=== PATIENT | male | born 1990 | race Caucasian/White ===

== ENCOUNTER 2022-01-07 16:03 | Emergency (ER) | payer BC, SELFPAY ==
[2022-01-07 16:11] VITALS: BP 161/97; PULSE 83; RESP 18; TEMP 36.7; O2SAT 100
--- NOTE | 2022-01-07 16:12 | ED.GENADULT ---
HPI - General Adult General Chief complaint: Wound/Laceration Stated complaint: Ct Thumb Lt Hand Time Seen by Provider: 01/07/22 16:12 Source: patient Mode of arrival: ambulatory Limitations: no limitations Related Data Home Medications Medication Instructions Recorded Confirmed No Home Medications 01/07/22 01/07/22 Allergies Allergy/AdvReac Type Severity Reaction Status Date / Time No Known Allergies Allergy Verified 01/07/22 16:08 Review of Systems Review of Systems: CONSTITUTIONAL: Denies fever, chills, or sweats. EYES: Denies visual changes, redness, or discharge. ENT: Denies rhinorrhea, congestion, sore throat, or otalgia. CARDIOVASCULAR: Denies chest pain, palpitations, or edema. RESPIRATORY: Denies cough or dyspnea. GASTROINTESTINAL: Denies abdominal pain, nausea, vomiting, or diarrhea. GENITOURINARY: Denies dysuria or hematuria. SKIN: Denies rash or itching. MUSCULOSKELETAL: Denies back pain, joint pain, or myalgia. NEUROLOGIC: Denies headache, numbness, or weakness. PSYCHIATRIC: Denies anxiety or depression. PMFSH Comments At the time of my signature I agree with nursing past medical history, surgical, social, and family history. There is no relevant family history pertinent to the presenting complaint. Exam Narrative: GENERAL: Well-appearing, well-nourished, and in no acute distress. HEAD: Normocephalic, atraumatic. EYES: PERRLA and EOMI. ENT: Nares clear, no rhinorrhea or epistaxis. Mucous membranes moist. NECK: Supple. No lymphadenopathy CHEST: Clear to auscultation. No respiratory distress. HEART: Regular rate and rhythm. No murmur heard. Normal peripheral pulses. ABDOMEN: Soft, nontender, nondistended, normal active bowel sounds. EXTREMITIES: Normal range of motion. No edema. SKIN: Warm, dry, no rash. NEURO: No focal deficits. Alert and oriented x3. Course Course Level of Care: Express Care Visit Vital Signs Vital signs: Vital Signs Temperature 36.7 C 01/07/22 16:11 Pulse Rate 83 01/07/22 16:11 Respiratory Rate 18 01/07/22 16:11 Blood Pressure 161/97 H 01/07/22 16:11 Pulse Oximetry 100 01/07/22 16:11 Oxygen Delivery Room Air 01/07/22 16:11 Temperature 36.7 C 01/07/22 16:11 Pulse Rate 83 01/07/22 16:11 Respiratory Rate 18 01/07/22 16:11 Blood Pressure 161/97 H 01/07/22 16:11 Pulse Oximetry 100 01/07/22 16:11 Oxygen Delivery Room Air 01/07/22 16:11 Vital signs reviewed Medical Decision Making Differential Diagnosis Differential Diagnosis: Differential diagnosis: Abscess, cellulitis, hidradenitis, laceration, puncture wound. Simple, intermediate, or complex laceration. Vital Signs Vital Signs: Vital Signs Temperature 36.7 C 01/07/22 16:11 Pulse Rate 83 01/07/22 16:11 Respiratory Rate 18 01/07/22 16:11 Blood Pressure 161/97 H 01/07/22 16:11 Pulse Oximetry 100 01/07/22 16:11 Oxygen Delivery Room Air 01/07/22 16:11 Temperature 36.7 C 01/07/22 16:11 Pulse Rate 83 01/07/22 16:11 Respiratory Rate 18 01/07/22 16:11 Blood Pressure 161/97 H 01/07/22 16:11 Pulse Oximetry 100 01/07/22 16:11 Oxygen Delivery Room Air 01/07/22 16:11 Critical Care Time Critical Care Time Critical Care Time: No Discharge Plan Discharge Clinical Impression: Laceration Patient Disposition: Home, Self-Care Condition: Stable Instructions: Antibiotic Form, Finger Laceration (ED) Additional Instructions: -adhesive works like a bandage; do not use antibiotic onitment as it can break down the adhesive -You can shower while the adhesive is on your skin, but do not take a bath or soak or scrub the area for 7-10 days. Dry your skin by patting it gently with a towel. -The adhesive will peel off on its own; usually by 5-10days. If after 10 days, you still have adhesive on you, you can use antibiotic ointment or petroleum jelly to get it off. After you heal, you should protect the scar from the sun. Use sunscreen on
[2022-01-07] MEDS: TETANUS,DIPHTHERIA,AC PERTUSSIS ADULT (0.5 ML) BOOSTRIX IM (16:21)
== END 2022-01-07 16:46 | disposition home or self-care (01) ==
PROVIDERS: Emergency Provider Nurse Practitioner Family
DX: S61.012A Laceration without foreign body of left thumb without damage to nail, initial encounter (principal); W45.8XXA Other foreign body or object entering through skin, initial encounter; Z23 Encounter for immunization
CPT/HCPCS: 12001; 90471; 90715; 99212; G0463

== ENCOUNTER 2023-12-05 07:07 | Outpatient (CLI) | payer BC, SELFPAY ==
--- NOTE | ~2023-12-05 | MR_ITS ---
MRI of the right knee Clinical history: Injury Technique: Coronal proton density and proton density-weighted images, sagittal proton-density and T2 fat-sat images, and axial proton-density fat-saturated images were acquired. Findings: Anterior and posterior cruciate ligaments are intact. Medial collateral ligament and the la teral collateral ligament, posterior intact. Popliteus tendon is intact. Medial and lateral menisci are intact, without evidence of tear. There is focal mild to moderate chondromalacia along the medial patellar facet. Remaining articular c artilage is well preserved. Bone marrow signals are unremarkable. Extensor mechanism is intact. No significant joint effusion or Craig's cyst. 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 No other significant findings. Reviewed, dictated and finalized at location . 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 No other significant findings.
== END 2023-12-05 07:08 ==
PROVIDERS: PCP Physician Assistant Medical; Visit Provider Physician Assistant Medical
DX: S89.91XA Unspecified injury of right lower leg, initial encounter (principal); M94.261 Chondromalacia, right knee
CPT/HCPCS: 73721

== ENCOUNTER 2024-02-13 15:00 | Outpatient (RCR) | payer BC, SELFPAY ==
--- NOTE | 2023-12-14 18:00 | OPREHPOC ---
Outpatient Therapy Plan of Care This is a Multidisciplinary Plan of Care that may contain components documented by all disciplines (PT, OT, and ST.) PT Problem 1 PT Problem #1 Knowledge Deficit PT Goal 1 Goal Pt will be independent in HEP Pt will verbalize understanding of diagnosis and prognosis Target Visit 5 PT Problem 2 PT Problem #2 Pain PT Goal 1 Goal Pt will report lowest pain rating at 0/10 to show improvement in overall discomfort Target Visit 5 PT Goal 2 Goal Pt will report greatest pain level at 3/10 or less to improve ADLs and activities Target Visit 10 PT Problem 3 PT Problem #3 Impaired Strength PT Goal 1 Goal Pt will demo strength of 4+/5 in all tested planes PT Problem 4 PT Problem #4 Impaired Flexibility PT Goal 1 Goal Pt will demo hamstring flexibility of 60 degrees or greater from 90/90 position Target Visit 5 PT Goal 2 Goal Pt will demo only mild flexibility deficit in the affected iliotibial band Target Visit 10
--- NOTE | 2023-12-14 18:02 | PTOPEVAL1 ---
Assessment and note entered by Melinda Damon, PT Evaluation Information Assessment Status Evaluation Diagnosis s89.91xA ICD-10 Condition Codes (PT) M25.561,Weakness R53.1 Subjective Information Pt tripped in hole in a yard about 2 months ago. [place] an immediate pain. Once in a while will wear a knee sleeve but no prior injuries to right knee. Pt did 10 day pack of steroids and this did not seem to help. 8 years ago remembers walking around in the mud and pulling leg up felt a pop in the knee and has had on and off knee issues since. 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 As uses knee it worsens. By the end of the day on short days a 7/10 and long days a 10/10. On those days will Aleve and ice. no referral as of yet to orthopedic doctor Reported Pain Level Pain Score 3: Self Report Assessment PT Clinical Summary Pt presents with complaints of posterior knee pain (R) that increases with activity. Pt demos genu recurvatum flex, very tight gastrocs,hamstrings , and decreased strength multiple muscle groups. Special tests suggestive of medial joint irritation however MRI and tests suggests all structures are intact. Appears to be related to popliteus irritation due to decreased flexibility of surrounding muscle groups and poor postures and alignment. Pt will benefit from physical therapy in order to address pain, irritation, flexibility, strength, and alignment to return pt to [facility]. Plan of Care Interventions Electrical Stimulation,Hot Pack/Cold Pack,Manual Therapy,Neuro Re-education,Therapeutic Activities, Therapeutic Exercise,Self-Care/Home Management, Ultrasound,Other Other Interventions taping PT Services Indicated Yes Treatment Frequency and 1-2x weekly x 10 visits Duration These treatments will address the objective and functional deficits as defined above. The patient will be advanced safely and appropriately in order for the patient to progress towards his/her prior level of function. Additional exercises will be introduced and as well as a comprehensive home exercise program upon discharge, if needed, ?to ensure carryover of functional gains achieved in the clinic. This treatment plan has been reviewed and agreement upon by the patient.
--- NOTE | 2024-02-13 15:42 | PTOPDC ---
Assessment and note entered by Melinda Damon, PT Evaluation Information Assessment Status Discharge Diagnosis s89.91xA ICD-10 Condition Codes (PT) M25.561,Weakness R53.1 Subjective Information Pt states walked for fitness at the local [facility] about a mile. He had to stop due to pain while his continued walking. Reports his knee swelled up that night. He used ice and his TENS unit to help reduce pain. Pt reports is able to go up and down the stairs better, and can go 2 blocks easier but longer with a mile walk increases pain. States walking on uneven ground, when the foot moves around sends pain into the knee. Reports can stand longer now and that since he is more conscious of his knee alignment and preventing flamingo knee (recurvatum) pain has improved. He has been wearing his arch supports as directed as well. Reported Pain Level Pain Score 5: Self Report Assessment PT Clinical Summary Pt has attended therapy consistently for right knee pain. Pt appears to have been following suggestions of therapist including postural changes, and arch supports. Pain has somewhat reduced from 2-10/10 to 1-7/10, and patient has made some functional improvement including navigating stairs and standing longer wiht less pain. However he continues to demo multiple (+) tests suggestive of meniscal involvement though MRI states no meniscal involvement. Regardless of meniscus vs chondromalacia diagnosis, pt would likely benefit from an ortho consult to improve pain and function with less pain. He appears to have met max benefit for therapy at this time, and will thus be discharged from [facility]. Plan of Care PT Services Indicated No
== END 2024-02-28 11:18 | disposition home or self-care (01) ==
LOC: ANHHIPT 15:00
PROVIDERS: PCP Physician Assistant Medical; Visit Provider Physician Assistant Medical
DX: S89.91XA Unspecified injury of right lower leg, initial encounter (principal)
CPT/HCPCS: 97014; 97016; 97035; 97110; 97112; 97140; 97161; 97750; G0283